=== PATIENT | male | born 1965 | race African-American/Black ===

== ENCOUNTER 2018-04-06 09:03 | Emergency (ER) | payer MEDICARE, MEDICAID ==
[~2018-04-06] VITALS: Ht 170.2 cm; Wt 116.0 kg
[~2018-04-06 09:03] MED LIST: ASPI-1079 PO; ASPI-1158 PO; ATOR10TA69 PO; CARD12 PO; CLON0.2T PO; FURO80TA87 PO; GABA-531 PO; GLIP5TAB12 PO; HYDR-4135 PO; METO-539 PO; TRAZ-213 PO; WARF2.5T47 PO
[2018-04-06 09:54] LABS: BASOPHILS % 0.4 % (0.0-2.0); EOSINOPHILS % 1.7 % (0.0-5.0); HEMATOCRIT. 37.5 % (42.0-52.0); HEMOGLOBIN. 12.2 g/dL (14.0-18.0); LYMPHOCYTES % 7.2 % (20.0-50.0); MEAN CORPUSCULAR HEMOGLOBIN 26.8 pg (28.0-32.0); MEAN CORPUSCULAR VOLUME 82.4 fL (80.0-94.0); MEAN PLATELET VOLUME 7.6 fl (7.4-10.4); MONOCYTES % 10.4 % (2.0-8.0); NEUTROPHILS % 80.3 % (40.0-76.0); PLATELET 174 x1000/uL (130-400); RED BLOOD CELL COUNT 4.55 mill/uL (4.7-6.1)
[2018-04-06 09:59] LABS: CHLORIDE 97 mEq/L (98-107)
[2018-04-06 10:06] LABS: PROTHROMBIN TIME 10.1 sec (9.1-11.1)
[2018-04-06] MEDS ORDERED: HYDROCODONE/ACETAMINOPHEN 5/325MG TABLET PO ONE (12:30)
[2018-04-06 12:47] VITALS: BP 114/60
== END 2018-04-06 12:50 | disposition home or self-care (01) ==
LOC: ER 09:03
DX: E11.649 Type 2 diabetes mellitus with hypoglycemia without coma (principal); N18.6 End stage renal disease; E11.22 Type 2 diabetes mellitus with diabetic chronic kidney disease; R03.0 Elevated blood-pressure reading, without diagnosis of hypertension; E88.09 Other disorders of plasma-protein metabolism, not elsewhere classified; D64.9 Anemia, unspecified; Z68.25 Body mass index [BMI] 25.0-25.9, adult; Z79.84 Long term (current) use of oral hypoglycemic drugs; Z99.2 Dependence on renal dialysis; Z79.899 Other long term (current) drug therapy; Z79.82 Long term (current) use of aspirin
CPT/HCPCS: 36415; 80053; 82962; 85025; 85610; 93005; 99285